=== PATIENT | male | born 1945 | race Caucasian/White ===

== ENCOUNTER 2017-02-19 19:12 | Emergency (ER) | payer BC, OTHER ==
[~2017-02-19] VITALS: Ht 160 cm; Wt 81.6 kg
[~2017-02-19 19:12] MED LIST: METF-312 PO; NIFE30TA76 PO
[2017-02-19 19:27] VITALS: BP 169/107
[2017-02-19 20:15] LABS: Basophils # (auto) 0 uL; Basophils % (auto) 0.7 % (0.0-2.0); Eosinophils # (auto) 0.1 uL; Eosinophils % (auto) 2.1 % (0.0-7.0); Hematocrit 42.9 % (41.0-53.0); Hemoglobin 14.3 g/dL (13.5-17.5); Lymphocytes # (auto) 1.7 uL; Lymphocytes % (auto) 32.5 % (10.0-50.0); Mean Corpuscular Hemoglobin 28.6 pg (28.0-32.0); Mean Corpuscular Hgb Conc. 33.2 g/dL (32.0-36.0); Mean Corpuscular Volume 86.3 fL (80.0-100.0); Mean Platelet Volume 7.6 fL (7.4-10.4); Monocytes # (auto) 0.5 uL; Monocytes % (auto) 10.2 % (0.0-12.0); Neutrophils # (auto) 2.9 uL; Neutrophils % (auto) 54.5 % (37.0-80.0); Platelet Count (auto) 236 10^3/uL (140-450); Red Cell Distribution Width 16.2 % (11.6-16.0); White Blood Cell 5.3 10^3/uL (4.4-10.8)
[2017-02-19 20:31] LABS: Albumin 4.1 g/dL (3.4-5.0); Alkaline Phosphatase 64 U/L (45-117); Anion Gap 14 (5-15); Aspartate Aminotransferase 30 U/L (15-37); BUN/Creatinine Ratio 14.6; Bilirubin, Total 0.3 mg/dL (0.2-1.0); Blood Urea Nitrogen 20 mg/dL (7-18); Calcium 9.2 mg/dL (8.5-10.1); Carbon Dioxide 24 mmol/L (21-32); Chloride 109 mmol/L (98-107); GFR African American 66 mL/min; GFR Non-African American 55 mL/min; Glucose 135 mg/dL (74-106); Magnesium 2.1 mg/dL (1.6-2.6); Potassium 3.3 mmol/L (3.5-5.1); Sodium 147 mmol/L (136-145); Total Protein 7.8 g/dL (6.4-8.2)
[2017-02-19 20:36] LABS: INR 1.03 (0.9-1.15); Partial Thromboplastin Time 22.9 sec (22.64-33.71); Prothrombin Time 10.6 sec (9.37-12.3)
== END 2017-02-19 20:25 | disposition left against medical advice (07) ==
LOC: EDBD 19:12 → ER 19:21
DX: R53.1 Weakness (principal); Z53.21 Procedure and treatment not carried out due to patient leaving prior to being seen by health care provider
CPT/HCPCS: 36415; 71020; 80053; 82962; 83735; 84484; 85025; 85610; 85730; 93005

== ENCOUNTER 2018-12-11 11:32 | Emergency (ER) | payer BC, MEDICARE, OTHER ==
[~2018-12-11] VITALS: Ht 165.1 cm; Wt 72.6 kg
[~2018-12-11 11:32] MED LIST changes: -METF-312 PO; +METF-370 PO
[2018-12-11 12:12] VITALS: BP 142/98
[2018-12-11] MEDS ORDERED: SODIUM CHLORIDE 0.9% 1,000 ML IV ONE (12:15)
[2018-12-11 12:37] LABS: Basophils # (auto) 0.1 uL; Basophils % (auto) 0.8 % (0.0-2.0); Eosinophils # (auto) 0.1 uL; Eosinophils % (auto) 1.8 % (0.0-7.0); Hemoglobin 13.7 g/dL (13.5-17.5); Lymphocytes # (auto) 2.3 uL; Lymphocytes % (auto) 38.9 % (10.0-50.0); Mean Corpuscular Hemoglobin 27.8 pg (28.0-32.0); Mean Corpuscular Hgb Conc. 33.5 g/dL (32.0-36.0); Monocytes # (auto) 0.6 uL; Monocytes % (auto) 9.9 % (0.0-12.0); Neutrophils # (auto) 2.9 uL; Neutrophils % (auto) 48.6 % (37.0-80.0); Nucleated Red Blood Cells % 0.1 %; Platelet Count (auto) 212 10^3/uL (140-450); Red Blood Cells 4.94 10^6/uL (4.5-5.90); Red Cell Distribution Width 18.1 % (11.8-14.3)
[2018-12-11 13:10] LABS: Potassium 3.7 mmol/L (3.5-5.1)
[2018-12-11 13:19] LABS: BUN/Creatinine Ratio 14.5; Bilirubin, Total 0.4 mg/dL (0.2-1.0); Calcium 9.3 mg/dL (8.5-10.1); Total Protein 7.7 g/dL (6.4-8.2)
== END 2018-12-11 15:07 | disposition home or self-care (01) ==
LOC: ER 11:32
DX: F10.129 Alcohol abuse with intoxication, unspecified (principal); E11.9 Type 2 diabetes mellitus without complications; E78.5 Hyperlipidemia, unspecified; Z79.84 Long term (current) use of oral hypoglycemic drugs; Z79.899 Other long term (current) drug therapy
CPT/HCPCS: 36415; 80053; 80320; 85025; 93005; 94761; 96360; 99284; J7030

== ENCOUNTER 2021-01-04 19:05 | Inpatient (IN) | payer MEDICARE ==
[~2021-01-04] VITALS: Ht 172.7 cm; Wt 84.7 kg
[~2021-01-04 19:05] MED LIST changes: +ACET500T43 PO; +FOLI1TAB6 PO; +LISI40TA11 PO; +NIFE1TAB30 PO; -NIFE30TA76 PO; +PANT40T PO; +THIA50CA PO
[2021-01-04] MEDS: LORazepam 2MG/ML-1ML VIAL ONE (19:17)
[2021-01-04 20:38] LABS: Basophils # (auto) 0 10 ^3/uL (0-0.2); Basophils % (auto) 0.4 % (0.0-2.0); Eosinophils # (auto) 0 10 ^3/uL (0-0.8); Eosinophils % (auto) 0.6 % (0.0-7.0); Hematocrit 42.8 % (41.0-53.0); Hemoglobin 14.4 g/dL (13.5-17.5); Lymphocytes # (auto) 1.6 10 ^3/uL (0.4-5.4); Lymphocytes % (auto) 29.8 % (10.0-50.0); Mean Corpuscular Hemoglobin 30.1 pg (28.0-32.0); Mean Corpuscular Hgb Conc. 33.6 g/dL (32.0-36.0); Mean Corpuscular Volume 89.4 fL (80.0-100.0); Monocytes # (auto) 0.7 10 ^3/uL (0-1.3); Monocytes % (auto) 13.1 % (0.0-12.0); Neutrophils # (auto) 3.1 10 ^3/uL (1.6-8.6); Neutrophils % (auto) 56.1 % (37.0-80.0); Nucleated Red Blood Cells % 0.3 %; Red Blood Cells 4.79 10^6/uL (4.5-5.90); Red Cell Distribution Width 13.6 % (11.8-14.3); White Blood Cell 5.5 10^3/uL (4.4-10.8)
[2021-01-04 21:01] LABS: Albumin 3.5 g/dL (3.4-5.0); Anion Gap 23 (5-15); BUN/Creatinine Ratio 10.6; Blood Urea Nitrogen 28 mg/dL (7-18); Calcium 9.4 mg/dL (8.5-10.1); Carbon Dioxide 15 mmol/L (21-32); Chloride 93 mmol/L (98-107); GFR African American 31 mL/min; GFR Non-African American 25 mL/min; Magnesium 2.1 mg/dL (1.6-2.6); Potassium 3.9 mmol/L (3.5-5.1); Sodium 131 mmol/L (136-145)
[2021-01-04 21:05] LABS: INR 0.98 (0.9-1.15); Partial Thromboplastin Time 22.4 sec (23.0-31.2)
[2021-01-04 21:09] LABS: Alanine Aminotransferase 34 U/L (16-61); Alkaline Phosphatase 89 U/L (45-117); Aspartate Aminotransferase 21 U/L (15-37); Bilirubin, Total 0.4 mg/dL (0.2-1.0); Total Protein 7.5 g/dL (6.4-8.2)
[2021-01-04 21:11] LABS: Glucose 572 mg/dL (74-106)
[2021-01-04] MEDS ORDERED: SODIUM CHLORIDE 0.9% 1,000 ML IV ONE ×2 (21:30→23:15)
[2021-01-04] MEDS ORDERED: InsuLIN REG 1unit/0.01ml Soln (100units/ml) IV ONE (21:30)
[2021-01-04 22:52] LABS: Urine Bacteria NONE SEEN /hpf (None Seen); Urine Blood 1+ /uL (Negative); Urine Specific Gravity 1.026 (1.001-1.035); Urine WBC 1 /hpf (0 - 3)
[2021-01-04 23:01] LABS: Amphetamine Screen, Urine NEGATIVE (NEGATIVE); Barbiturate Scree,Urine NEGATIVE (NEGATIVE); Benzodiazephine Screen, Urine NEGATIVE (NEGATIVE); Cannabinoid Screen, Urine NEGATIVE (NEGATIVE); Cocaine Screen, Urine NEGATIVE (NEGATIVE); Opiate Scree,Urine NEGATIVE (NEGATIVE); Phencyclidine Screen, Urine NEGATIVE (NEGATIVE)
[2021-01-04] MEDS ORDERED: VANCOMYCIN 1GM/250ML 250 ML IV ONE (23:15)
[2021-01-04] MEDS ORDERED: PIPERACILLIN-TAZOB 3.375GM 100 ML IV ONE (23:15)
[2021-01-05 00:16] LABS: Lactic Acid w/Reflex 2.5 mmol/L (0.4-2.0)
[2021-01-05] MEDS ORDERED: DEXTROSE (50%) 50ML SYRG IV PRN (04:30)
[2021-01-05] MEDS ORDERED: ACETAMINOPHEN 325 MG TAB PO PRN (04:30)
[2021-01-05] MEDS ORDERED: LORazepam 0.5 MG TAB PO PRN (04:30)
[2021-01-05] MEDS ORDERED: NITROGLYCERIN 0.4 MG SL TAB SL PRN ×2 (04:30)
[2021-01-05] MEDS ORDERED: MORPHINE SULFATE 4 MG/ML SYR/VIAL IV PRN (04:30)
[2021-01-05] MEDS ORDERED: ZOLPIDEM TARTRATE 5 MG TAB PO PRN (04:30)
[2021-01-05] MEDS ORDERED: MORPHINE SULFATE INJECTION 2 MG/ML SYRG IV PRN (04:30)
[2021-01-05] MEDS ORDERED: SODIUM CHLORIDE 0.9% 1,000 ML IV SCH (04:30)
[2021-01-05] MEDS ORDERED: ONDANSETRON HCL 4 MG/2 ML VIAL IV PRN (04:30)
[2021-01-05] MEDS ORDERED: LORazepam 2MG/ML-1ML VIAL IV ONE (06:45)
[2021-01-05] MEDS: ACCU-CHEK COMFORT CURVE STRIP VI SCH ×5 (07:36→23:34)
[2021-01-05] MEDS: InsuLIN REG 1unit/0.01ml Soln (100units/ml) SC SCH ×5 (08:04→23:57)
[2021-01-05 08:26] LABS: Basophils # (auto) 0 10 ^3/uL (0-0.2); Basophils % (auto) 0.6 % (0.0-2.0); Eosinophils # (auto) 0.1 10 ^3/uL (0-0.8); Eosinophils % (auto) 1.3 % (0.0-7.0); Hematocrit 38.8 % (41.0-53.0); Hemoglobin 13.2 g/dL (13.5-17.5); Lymphocytes # (auto) 1.3 10 ^3/uL (0.4-5.4); Lymphocytes % (auto) 21.4 % (10.0-50.0); Mean Corpuscular Hemoglobin 29.9 pg (28.0-32.0); Mean Corpuscular Hgb Conc. 34.1 g/dL (32.0-36.0); Mean Corpuscular Volume 87.7 fL (80.0-100.0); Monocytes # (auto) 0.8 10 ^3/uL (0-1.3); Neutrophils # (auto) 3.8 10 ^3/uL (1.6-8.6); Neutrophils % (auto) 63.7 % (37.0-80.0); Nucleated Red Blood Cells % 0.1 %; Red Blood Cells 4.42 10^6/uL (4.5-5.90); Red Cell Distribution Width 13.4 % (11.8-14.3)
[2021-01-05 08:46] LABS: Calcium 8.9 mg/dL (8.5-10.1); Potassium 3.6 mmol/L (3.5-5.1)
[2021-01-05 08:51] LABS: BUN/Creatinine Ratio 12.7
[2021-01-05] MEDS: LABETALOL HCL 5 MG/ML 4ML SYRINGE IV PRN ×2 (09:35→22:44)
[2021-01-05] MEDS: DOCUSATE SOD 100 MG CAP PO SCH (10:00)
[2021-01-05] MEDS: ASPirin 81 mg TAB PO SCH (10:00)
[2021-01-05] MEDS: ENOXAPARIN SOD 60 MG/0.6 ML SYRINGE SC SCH (10:00)
[2021-01-05] MEDS ORDERED: CARVEDILOL 3.125 MG TAB PO SCH (10:00)
[2021-01-05] MEDS: LISINOPRIL 5 MG TAB PO SCH (10:00)
[2021-01-05] MEDS ORDERED: CLOPIDOGREL BISULFATE 75 MG TAB PO SCH (10:00)
[2021-01-05] MEDS ORDERED: FOLIC ACID 1 MG, MULTIPLE VITAMIN 10 ML, MAGNESIUM SULF SDV 50% 8 MEQ, THIAMINE INJ 100... INJ SCH ×5 (11:00)
[2021-01-05] MEDS: MULTIPLE VITAMIN TAB PO SCH (12:17)
[2021-01-05] MEDS: FOLIC ACID 1 MG, MAGNESIUM SULF SDV 50% 8 MEQ, THIAMINE INJ 100 MG in SODIUM CHLORIDE 0... INJ SCH (12:17)
[2021-01-05] MEDS: SODIUM CHLORIDE 0.9% 1,000 ML IV SCH (12:36)
[2021-01-05] MEDS: chlordiazePOXIDE HCL 25 MG CAP PO SCH ×2 (18:05→23:49)
[2021-01-05] MEDS: CARVEDILOL 12.5 MG TAB PO SCH (21:32)
[2021-01-05] MEDS: ATORVASTATIN 20 MG TAB PO SCH (21:32)
[2021-01-05 21:51] VITALS: BP 169/109
[2021-01-05] MEDS ORDERED: INSULIN LANTUS (GLARGINE) 1 /0.01ml (100units/ml) SC SCH (22:00)
[2021-01-06] MEDS: ACCU-CHEK COMFORT CURVE STRIP VI SCH ×5 (03:53→20:00)
[2021-01-06] MEDS: InsuLIN REG 1unit/0.01ml Soln (100units/ml) SC SCH ×5 (03:53→20:00)
[2021-01-06] MEDS: LABETALOL HCL 5 MG/ML 4ML SYRINGE IV PRN (03:57)
[2021-01-06 04:44] VITALS: BP 161/99
[2021-01-06] MEDS: chlordiazePOXIDE HCL 25 MG CAP PO SCH ×3 (06:21→18:08)
[2021-01-06 06:58] LABS: Alanine Aminotransferase 21 U/L (16-61); Alkaline Phosphatase 64 U/L (45-117); Anion Gap 8 (5-15); Aspartate Aminotransferase 16 U/L (15-37); BUN/Creatinine Ratio 13.2; Bilirubin, Total 0.8 mg/dL (0.2-1.0); Blood Urea Nitrogen 22 mg/dL (7-18); Calcium 8.7 mg/dL (8.5-10.1); Carbon Dioxide 23 mmol/L (21-32); Chloride 110 mmol/L (98-107); GFR African American 52 mL/min; GFR Non-African American 43 mL/min; Glucose 175 mg/dL (74-106); Potassium 3.2 mmol/L (3.5-5.1); Sodium 141 mmol/L (136-145)
[2021-01-06 06:59] LABS: Albumin 2.7 g/dL (3.4-5.0); Magnesium 1.9 mg/dL (1.6-2.6)
[2021-01-06 08:00] VITALS: BP 161/97
[2021-01-06] MEDS: SODIUM CHLORIDE 0.9% 1,000 ML IV SCH (08:15)
[2021-01-06] MEDS: DOCUSATE SOD 100 MG CAP PO SCH (09:01)
[2021-01-06] MEDS: CARVEDILOL 12.5 MG TAB PO SCH ×2 (09:02→22:00)
[2021-01-06] MEDS: MULTIPLE VITAMIN TAB PO SCH (09:03)
[2021-01-06] MEDS: PANTOPRAZOLE 40 MG TAB PO SCH (09:03)
[2021-01-06] MEDS: LISINOPRIL 5 MG TAB PO SCH (09:04)
[2021-01-06] MEDS: ENOXAPARIN SOD 60 MG/0.6 ML SYRINGE SC SCH (09:04)
[2021-01-06] MEDS: ASPirin 81 mg TAB PO SCH (11:21)
[2021-01-06] MEDS: FOLIC ACID 1 MG, MAGNESIUM SULF SDV 50% 8 MEQ, THIAMINE INJ 100 MG in SODIUM CHLORIDE 0... INJ SCH (12:21)
[2021-01-06 15:48] VITALS: BP 142/87
[2021-01-06] MEDS ORDERED: ERGOCALCIFEROL 50,000 UNIT(1.25MG) CAP PO SCH (16:15)
[2021-01-06] MEDS ORDERED: MAGNESIUM SULFATE 1GM/100ML 100 ML IV ONE (16:15)
[2021-01-06] MEDS: CHOLECALCIFEROL (VITD3) 2,000 UNIT CAP/TAB PO SCH (16:17)
[2021-01-06 22:00] VITALS: BP 131/86
[2021-01-06] MEDS: INSULIN LANTUS (GLARGINE) 1 /0.01ml (100units/ml) SC SCH (22:00)
[2021-01-06] MEDS: ATORVASTATIN 20 MG TAB PO SCH (22:00)
[2021-01-07] MEDS: SODIUM CHLORIDE 0.9% 1,000 ML IV SCH (04:19)
[2021-01-07] MEDS: ACCU-CHEK COMFORT CURVE STRIP VI SCH ×6 (04:19→20:00)
[2021-01-07] MEDS: InsuLIN REG 1unit/0.01ml Soln (100units/ml) SC SCH ×6 (04:28→20:00)
[2021-01-07 05:28] VITALS: BP 161/98
[2021-01-07] MEDS: chlordiazePOXIDE HCL 25 MG CAP PO SCH ×4 (06:00→18:10)
[2021-01-07 07:37] LABS: Potassium 3.1 mmol/L (3.5-5.1)
[2021-01-07 07:41] LABS: Calcium 8.3 mg/dL (8.5-10.1); Magnesium 2.2 mg/dL (1.6-2.6)
[2021-01-07 09:00] VITALS: BP 158/97
[2021-01-07] MEDS ORDERED: POTASSIUM CHL 20 Meq TABLET PO ONE (09:45)
[2021-01-07] MEDS: CARVEDILOL 12.5 MG TAB PO SCH ×2 (10:00→22:08)
[2021-01-07] MEDS: ASPirin 81 mg TAB PO SCH (10:00)
[2021-01-07] MEDS: CHOLECALCIFEROL (VITD3) 2,000 UNIT CAP/TAB PO SCH (10:00)
[2021-01-07] MEDS: LISINOPRIL 5 MG TAB PO SCH (10:00)
[2021-01-07] MEDS: PANTOPRAZOLE 40 MG TAB PO SCH (10:00)
[2021-01-07] MEDS: ENOXAPARIN SOD 40 MG/0.4 ML SYRINGE SC SCH (10:00)
[2021-01-07] MEDS: DOCUSATE SOD 100 MG CAP PO SCH (10:00)
[2021-01-07] MEDS: MULTIPLE VITAMIN TAB PO SCH (10:00)
[2021-01-07] MEDS: FOLIC ACID 1 MG, MAGNESIUM SULF SDV 50% 8 MEQ, THIAMINE INJ 100 MG in SODIUM CHLORIDE 0... INJ SCH (12:00)
[2021-01-07] MEDS ORDERED: ATO40T PO (12:05)
[2021-01-07] MEDS ORDERED: LISI-275 PO (12:05)
[2021-01-07] MEDS ORDERED: INSLANTI SC (12:05)
[2021-01-07] MEDS ORDERED: MULTTAB99 PO (12:05)
[2021-01-07] MEDS ORDERED: CHOL500023 PO (12:05)
[2021-01-07] MEDS ORDERED: ASPI1CHW15 PO (12:05)
[2021-01-07] MEDS ORDERED: CARV6.25 PO (12:05)
[2021-01-07] MEDS ORDERED: SERT25TA84 PO (12:09)
[2021-01-07 13:00] VITALS: BP 125/89
[2021-01-07 16:56] VITALS: BP 126/78
[2021-01-07 21:00] VITALS: BP 122/70
[2021-01-07] MEDS: ATORVASTATIN 20 MG TAB PO SCH (22:08)
[2021-01-07] MEDS: INSULIN LANTUS (GLARGINE) 1 /0.01ml (100units/ml) SC SCH (22:09)
[2021-01-08] VITALS (7 sets, daily range): BP systolic 129–159; BP diastolic 74–94
[2021-01-08] MEDS: InsuLIN REG 1unit/0.01ml Soln (100units/ml) SC SCH ×6 (04:00→20:00)
[2021-01-08] MEDS: ACCU-CHEK COMFORT CURVE STRIP VI SCH ×6 (04:01→20:00)
[2021-01-08] MEDS: chlordiazePOXIDE HCL 25 MG CAP PO SCH ×4 (05:40→17:20)
[2021-01-08] MEDS: ASPirin 81 mg TAB PO SCH (09:56)
[2021-01-08] MEDS: CARVEDILOL 12.5 MG TAB PO SCH ×2 (09:57→21:15)
[2021-01-08] MEDS: PANTOPRAZOLE 40 MG TAB PO SCH (09:57)
[2021-01-08] MEDS: MULTIPLE VITAMIN TAB PO SCH (09:57)
[2021-01-08] MEDS: DOCUSATE SOD 100 MG CAP PO SCH (09:58)
[2021-01-08] MEDS: LISINOPRIL 5 MG TAB PO SCH (09:58)
[2021-01-08] MEDS: ENOXAPARIN SOD 40 MG/0.4 ML SYRINGE SC SCH (09:59)
[2021-01-08] MEDS: CHOLECALCIFEROL (VITD3) 2,000 UNIT CAP/TAB PO SCH (10:00)
[2021-01-08] MEDS: FOLIC ACID 1 MG, MAGNESIUM SULF SDV 50% 8 MEQ, THIAMINE INJ 100 MG in SODIUM CHLORIDE 0... INJ SCH (13:30)
[2021-01-08] MEDS: ATORVASTATIN 20 MG TAB PO SCH (21:15)
[2021-01-08] MEDS: INSULIN LANTUS (GLARGINE) 1 /0.01ml (100units/ml) SC SCH (21:15)
[2021-01-09] MEDS: ACCU-CHEK COMFORT CURVE STRIP VI SCH ×3 (00:29→08:33)
[2021-01-09] MEDS: InsuLIN REG 1unit/0.01ml Soln (100units/ml) SC SCH ×3 (04:00→08:35)
[2021-01-09 05:00] VITALS: BP 154/101
[2021-01-09] MEDS: chlordiazePOXIDE HCL 25 MG CAP PO SCH ×2 (05:20)
[2021-01-09 08:00] VITALS: BP 165/94
[2021-01-09 09:00] VITALS: BP 165/95
[2021-01-09] MEDS: ASPirin 81 mg TAB PO SCH (09:16)
[2021-01-09] MEDS: ENOXAPARIN SOD 40 MG/0.4 ML SYRINGE SC SCH (09:16)
[2021-01-09] MEDS: DOCUSATE SOD 100 MG CAP PO SCH (09:16)
[2021-01-09] MEDS: CARVEDILOL 12.5 MG TAB PO SCH (09:17)
[2021-01-09] MEDS: LISINOPRIL 5 MG TAB PO SCH (09:18)
[2021-01-09] MEDS: PANTOPRAZOLE 40 MG TAB PO SCH (09:18)
[2021-01-09] MEDS: CHOLECALCIFEROL (VITD3) 2,000 UNIT CAP/TAB PO SCH (09:18)
[2021-01-09] MEDS: MULTIPLE VITAMIN TAB PO SCH (09:18)
[2021-01-09] MEDS ORDERED: DEXTROSE (50%) 50ML SYRG IV PRN (10:00)
[2021-01-09] MEDS ORDERED: InsuLIN REG 1unit/0.01ml Soln (100units/ml) SC SCH (11:30)
[2021-01-09] MEDS ORDERED: ACCU-CHEK COMFORT CURVE STRIP VI SCH (11:30)
[2021-01-09] MEDS: LABETALOL HCL 5 MG/ML 4ML SYRINGE IV PRN (11:59)
[2021-01-09] MEDS: FOLIC ACID 1 MG, MAGNESIUM SULF SDV 50% 8 MEQ, THIAMINE INJ 100 MG in SODIUM CHLORIDE 0... INJ SCH (12:00)
== END 2021-01-09 14:35 | disposition home health service (06) | DRG 896 ==
LOC: EDBD 19:05 → ER 19:08 → TELE 19:09 → TELE-CENTR 01-05 21:49
PROVIDERS: ADMIT Hospitalist; ATTEND Internal Medicine
DX: F10.139 Alcohol abuse with withdrawal, unspecified (principal); N17.0 Acute kidney failure with tubular necrosis; I21.A1 Myocardial infarction type 2; I50.32 Chronic diastolic (congestive) heart failure; I13.0 Hypertensive heart and chronic kidney disease with heart failure and stage 1 through stage 4 chronic kidney disease, or unspecified chronic kidney disease; F10.129 Alcohol abuse with intoxication, unspecified; E11.65 Type 2 diabetes mellitus with hyperglycemia; E78.5 Hyperlipidemia, unspecified; E55.9 Vitamin D deficiency, unspecified; Z20.822 Contact with and (suspected) exposure to COVID-19; E87.6 Hypokalemia; E66.9 Obesity, unspecified; Z68.30 Body mass index [BMI] 30.0-30.9, adult; E11.22 Type 2 diabetes mellitus with diabetic chronic kidney disease; G40.909 Epilepsy, unspecified, not intractable, without status epilepticus; F32.9 Major depressive disorder, single episode, unspecified; Z79.82 Long term (current) use of aspirin; Z79.84 Long term (current) use of oral hypoglycemic drugs; Z79.899 Other long term (current) drug therapy; Z86.73 Personal history of transient ischemic attack (TIA), and cerebral infarction without residual deficits; Z83.3 Family history of diabetes mellitus; Z91.19 Patient's noncompliance with other medical treatment and regimen; Z71.41 Alcohol abuse counseling and surveillance of alcoholic; N18.32 Chronic kidney disease, stage 3b
CPT/HCPCS: 36415; 36600; 70450; 70551; 71045; 72125; 80048; 80053; 80061; 80307; 80320; 81001; 82010; 82140; 82306; 82728; 82805; 82962; 83036; 83605; 83735; 83880; 84443; 84484; 85025; 85379; 85610; 85730; 87040; 87086; 87426; 93005; 93306; 93886; 93970; 95819; 97163; 99291; G0378; J1815; J2543; J3490

== ENCOUNTER 2022-05-03 17:45 | Emergency (ER) | payer MEDICARE ==
[~2022-05-03] VITALS: Ht 160 cm; Wt 77.1 kg
[~2022-05-03 17:45] MED LIST changes: +ASPI1CHW15 PO; +ATO40T PO; +CARV6.25 PO; +CHOL500023 PO; +INSLANTI SC; +LISI-275 PO; -LISI40TA11 PO; +MULTTAB99 PO; +SERT25TA84 PO
[2022-05-04 18:16] VITALS: BP 160/99
== END 2022-05-04 19:05 | disposition home or self-care (01) ==
LOC: EDBD 17:45 → ER 17:45 → EDUNIT# 17:45 → ER 05-04 18:33
DX: I95.9 Hypotension, unspecified (principal); I10 Essential (primary) hypertension; E11.9 Type 2 diabetes mellitus without complications; Z79.82 Long term (current) use of aspirin; Z79.4 Long term (current) use of insulin; Z79.899 Other long term (current) drug therapy
CPT/HCPCS: 93005

== ENCOUNTER 2022-06-25 13:11 | Inpatient (IN) | payer MEDICARE, OTHER, MEDICAID ==
[~2022-06-25] VITALS: Ht 172.7 cm; Wt 77.0 kg
[2022-06-25] MEDS ORDERED: SODIUM CHLORIDE 0.9% 1,000 ML IVB ONE (13:45)
[2022-06-25 14:12] LABS: Eosinophils # (auto) 0.1 10 ^3/uL (0-0.8); Lymphocytes # (auto) 2.3 10 ^3/uL (0.4-5.4); Monocytes # (auto) 0.8 10 ^3/uL (0-1.3)
[2022-06-25 14:14] LABS: Basophils # (auto) 0 10 ^3/uL (0-0.2); Basophils % (auto) 0.4 % (0.0-2.0); Eosinophils % (auto) 2.4 % (0.0-7.0); Hematocrit 37.5 % (41.0-53.0); Lymphocytes % (auto) 41.2 % (10.0-50.0); Mean Corpuscular Hemoglobin 26.3 pg (28.0-32.0); Mean Corpuscular Volume 82.3 fL (80.0-100.0); Monocytes % (auto) 13.7 % (0.0-12.0); Neutrophils # (auto) 2.4 10 ^3/uL (1.6-8.6); Neutrophils % (auto) 42.3 % (37.0-80.0); Nucleated Red Blood Cells % 0.2 %; Red Blood Cells 4.56 10^6/uL (4.5-5.90); Red Cell Distribution Width 14.5 % (11.8-14.3); White Blood Cell 5.7 10^3/uL (4.4-10.8)
[2022-06-25 14:32] LABS: Lactic Acid w/Reflex 2.2 mmol/L (0.4-2.0)
[2022-06-25 14:37] LABS: Albumin 3.3 g/dL (3.4-5.0); BUN/Creatinine Ratio 19.1; Bilirubin, Total 0.4 mg/dL (0.2-1.0); Calcium 9.7 mg/dL (8.5-10.1); Magnesium 2.4 mg/dL (1.6-2.6); Total Protein 6.8 g/dL (6.4-8.2)
[2022-06-25] MEDS ORDERED: DOCUSATE SOD 100 MG CAP PO PRN (22:00)
[2022-06-25] MEDS: InsuLIN REG 1unit/0.01ml Soln (100units/ml) SC SCH (22:00)
[2022-06-25] MEDS ORDERED: DEXTROSE (50%) 50ML SYRG IV PRN (22:00)
[2022-06-25] MEDS: ACCU-CHEK COMFORT CURVE STRIP VI SCH (22:00)
[2022-06-25] MEDS ORDERED: ONDANSETRON HCL 4 MG/2 ML VIAL IV PRN (22:00)
[2022-06-25] MEDS ORDERED: ACETAMINOPHEN 325 MG TAB PO PRN (22:00)
[2022-06-25] MEDS ORDERED: HYDROcodone-ACET 5/325MG TAB PO PRN (22:00)
[2022-06-25] MEDS: SODIUM CHLORIDE 0.9% 1,000 ML IV SCH (22:42)
[2022-06-25] MEDS: ATORVASTATIN 20 MG TAB PO SCH (22:49)
[2022-06-25] MEDS: FAMOTIDINE (10MG/ML) 2ML VL IV SCH (22:50)
[2022-06-25] MEDS ORDERED: MORPHINE SULFATE INJ 2 MG/ml SYRG IV PRN (23:15)
[2022-06-25] MEDS ORDERED: NITROGLYCERIN 0.4 MG SL TAB SL PRN (23:15)
[2022-06-26] VITALS (7 sets, daily range): BP systolic 100–158; BP diastolic 45–91
[2022-06-26 05:56] LABS: Basophils # (auto) 0 10 ^3/uL (0-0.2); Basophils % (auto) 0.7 % (0.0-2.0); Eosinophils # (auto) 0.2 10 ^3/uL (0-0.8); Eosinophils % (auto) 2.7 % (0.0-7.0); Hematocrit 34.4 % (41.0-53.0); Hemoglobin 11.4 g/dL (13.5-17.5); Lymphocytes # (auto) 1.8 10 ^3/uL (0.4-5.4); Lymphocytes % (auto) 30.4 % (10.0-50.0); Mean Corpuscular Hgb Conc. 33.1 g/dL (32.0-36.0); Mean Corpuscular Volume 81.6 fL (80.0-100.0); Monocytes # (auto) 0.7 10 ^3/uL (0-1.3); Monocytes % (auto) 12.7 % (0.0-12.0); Neutrophils # (auto) 3.1 10 ^3/uL (1.6-8.6); Neutrophils % (auto) 53.5 % (37.0-80.0); Nucleated Red Blood Cells % 0.1 %; Red Blood Cells 4.22 10^6/uL (4.5-5.90); White Blood Cell 5.8 10^3/uL (4.4-10.8)
[2022-06-26 06:18] LABS: Chloride 113 mmol/L (98-107); Potassium 3.8 mmol/L (3.5-5.1); Sodium 141 mmol/L (136-145)
[2022-06-26 06:22] LABS: Albumin 2.7 g/dL (3.4-5.0); Anion Gap 8 (5-15); Blood Urea Nitrogen 33 mg/dL (7-18); Calcium 9.1 mg/dL (8.5-10.1); Carbon Dioxide 20 mmol/L (21-32); GFR African American 59 mL/min; GFR Non-African American 48 mL/min; Glucose 94 mg/dL (74-106)
[2022-06-26 06:25] LABS: Alanine Aminotransferase 21 U/L (16-61); Alkaline Phosphatase 64 U/L (45-117); Aspartate Aminotransferase 16 U/L (15-37); Bilirubin, Total 0.4 mg/dL (0.2-1.0); Total Protein 6.2 g/dL (6.4-8.2)
[2022-06-26] MEDS: ACCU-CHEK COMFORT CURVE STRIP VI SCH ×4 (06:34→23:05)
[2022-06-26] MEDS: InsuLIN REG 1unit/0.01ml Soln (100units/ml) SC SCH ×4 (06:34→22:00)
[2022-06-26] MEDS: NIFEdipine ER 30 MG TAB PO SCH (10:00)
[2022-06-26] MEDS: LISINOPRIL 20 MG TAB PO SCH (10:00)
[2022-06-26] MEDS: ASPirin 81 mg TAB PO SCH (10:00)
[2022-06-26] MEDS: SERTRALINE HCL 50 MG TAB PO SCH (10:00)
[2022-06-26] MEDS: LACTULOSE 20Gm/30ML SOLN PO SCH (12:00)
[2022-06-26] MEDS: FAMOTIDINE (10MG/ML) 2ML VL IV SCH ×2 (12:55→23:04)
[2022-06-26] MEDS: FOLIC ACID 1 MG, MULTIPLE VITAMIN 10 ML, MAGNESIUM SULF SDV 50% 8 MEQ, THIAMINE INJ 100... INJ SCH ×5 (16:27)
[2022-06-26] MEDS: SODIUM CHLORIDE 0.9% 1,000 ML IV SCH (16:27)
[2022-06-26] MEDS: ATORVASTATIN 20 MG TAB PO SCH (23:04)
[2022-06-27] VITALS (8 sets, daily range): BP systolic 105–179; BP diastolic 65–107
[2022-06-27] MEDS: SODIUM CHLORIDE 0.9% 1,000 ML IV SCH (06:37)
[2022-06-27] MEDS: ACCU-CHEK COMFORT CURVE STRIP VI SCH ×4 (06:37→21:46)
[2022-06-27] MEDS: InsuLIN REG 1unit/0.01ml Soln (100units/ml) SC SCH ×4 (06:38→21:46)
[2022-06-27] MEDS: ASPirin 81 mg TAB PO SCH (09:51)
[2022-06-27] MEDS: FAMOTIDINE (10MG/ML) 2ML VL IV SCH ×2 (09:51→21:45)
[2022-06-27] MEDS: SERTRALINE HCL 50 MG TAB PO SCH (09:52)
[2022-06-27] MEDS: NIFEdipine ER 30 MG TAB PO SCH (09:52)
[2022-06-27] MEDS: LISINOPRIL 20 MG TAB PO SCH (09:52)
[2022-06-27] MEDS: LACTULOSE 20Gm/30ML SOLN PO SCH ×4 (11:53→18:17)
[2022-06-27] MEDS ORDERED: cloNIDine HCL 0.1 MG TAB PO PRN (12:00)
[2022-06-27] MEDS: FOLIC ACID 1 MG, MULTIPLE VITAMIN 10 ML, MAGNESIUM SULF SDV 50% 8 MEQ, THIAMINE INJ 100... INJ SCH ×5 (13:25)
[2022-06-27] MEDS: ATORVASTATIN 20 MG TAB PO SCH (21:45)
[2022-06-28] MEDS: LACTULOSE 20Gm/30ML SOLN PO SCH ×5 (00:09→23:50)
[2022-06-28] MEDS: SODIUM CHLORIDE 0.9% 1,000 ML IV SCH ×2 (02:27→17:17)
[2022-06-28 05:00] VITALS: BP 130/79
[2022-06-28] MEDS: ACCU-CHEK COMFORT CURVE STRIP VI SCH ×4 (07:00→22:14)
[2022-06-28] MEDS: InsuLIN REG 1unit/0.01ml Soln (100units/ml) SC SCH ×4 (07:00→22:00)
[2022-06-28 09:00] VITALS: BP 125/74
[2022-06-28] MEDS: FAMOTIDINE (10MG/ML) 2ML VL IV SCH ×2 (09:14→22:13)
[2022-06-28] MEDS: ASPirin 81 mg TAB PO SCH (09:14)
[2022-06-28] MEDS: SERTRALINE HCL 50 MG TAB PO SCH (09:15)
[2022-06-28] MEDS: NIFEdipine ER 30 MG TAB PO SCH (09:16)
[2022-06-28] MEDS: LISINOPRIL 20 MG TAB PO SCH (09:16)
[2022-06-28] MEDS: FOLIC ACID 1 MG, MULTIPLE VITAMIN 10 ML, MAGNESIUM SULF SDV 50% 8 MEQ, THIAMINE INJ 100... INJ SCH ×5 (11:54)
[2022-06-28 13:00] VITALS: BP 148/98
[2022-06-28 17:51] VITALS: BP 140/77
[2022-06-28 20:30] VITALS: BP 126/80
[2022-06-28 22:00] VITALS: BP 140/79
[2022-06-28] MEDS: ATORVASTATIN 20 MG TAB PO SCH (22:14)
[2022-06-29 05:00] VITALS: BP 143/72
[2022-06-29] MEDS: InsuLIN REG 1unit/0.01ml Soln (100units/ml) SC SCH ×4 (06:16→23:25)
[2022-06-29] MEDS: LACTULOSE 20Gm/30ML SOLN PO SCH ×3 (06:16→17:42)
[2022-06-29] MEDS: ACCU-CHEK COMFORT CURVE STRIP VI SCH ×4 (06:16→22:11)
[2022-06-29 09:00] VITALS: BP 134/75
[2022-06-29] MEDS: FAMOTIDINE (10MG/ML) 2ML VL IV SCH ×2 (09:28→22:11)
[2022-06-29] MEDS: ASPirin 81 mg TAB PO SCH (09:29)
[2022-06-29] MEDS: SODIUM CHLORIDE 0.9% 1,000 ML IV SCH (09:29)
[2022-06-29] MEDS: SERTRALINE HCL 50 MG TAB PO SCH (09:30)
[2022-06-29] MEDS: NIFEdipine ER 30 MG TAB PO SCH (09:30)
[2022-06-29] MEDS: LISINOPRIL 20 MG TAB PO SCH (09:30)
[2022-06-29 13:00] VITALS: BP 139/72
[2022-06-29] MEDS: FOLIC ACID 1 MG, MULTIPLE VITAMIN 10 ML, MAGNESIUM SULF SDV 50% 8 MEQ, THIAMINE INJ 100... INJ SCH ×5 (14:11)
[2022-06-29 17:00] VITALS: BP 148/98
[2022-06-29 22:00] VITALS: BP 145/73
[2022-06-29] MEDS: ATORVASTATIN 20 MG TAB PO SCH (22:11)
[2022-06-30] MEDS: LACTULOSE 20Gm/30ML SOLN PO SCH ×5 (00:11→23:31)
[2022-06-30] MEDS: SODIUM CHLORIDE 0.9% 1,000 ML IV SCH ×3 (03:22→21:49)
[2022-06-30 05:00] VITALS: BP 115/71
[2022-06-30] MEDS: ACCU-CHEK COMFORT CURVE STRIP VI SCH ×4 (06:06→21:34)
[2022-06-30] MEDS: InsuLIN REG 1unit/0.01ml Soln (100units/ml) SC SCH ×4 (06:06→21:35)
[2022-06-30] MEDS: FAMOTIDINE (10MG/ML) 2ML VL IV SCH ×2 (09:37→21:33)
[2022-06-30] MEDS: ASPirin 81 mg TAB PO SCH (09:37)
[2022-06-30] MEDS: SERTRALINE HCL 50 MG TAB PO SCH (09:38)
[2022-06-30] MEDS: LISINOPRIL 20 MG TAB PO SCH (09:41)
[2022-06-30] MEDS: NIFEdipine ER 30 MG TAB PO SCH (09:41)
[2022-06-30 10:01] VITALS: BP 123/80
[2022-06-30 12:56] VITALS: BP 116/73
[2022-06-30] MEDS: FOLIC ACID 1 MG, MULTIPLE VITAMIN 10 ML, MAGNESIUM SULF SDV 50% 8 MEQ, THIAMINE INJ 100... INJ SCH ×5 (13:27)
[2022-06-30 16:48] VITALS: BP 122/68
[2022-06-30 21:28] VITALS: BP 126/83
[2022-06-30] MEDS: ATORVASTATIN 20 MG TAB PO SCH (21:34)
[2022-07-01] MEDS: LACTULOSE 20Gm/30ML SOLN PO SCH (05:56)
[2022-07-01] MEDS: InsuLIN REG 1unit/0.01ml Soln (100units/ml) SC SCH (05:57)
[2022-07-01] MEDS: ACCU-CHEK COMFORT CURVE STRIP VI SCH (05:57)
[2022-07-01 08:00] VITALS: BP 126/83
[2022-07-01 10:12] VITALS: BP 126/83
[2022-07-01] MEDS: ASPirin 81 mg TAB PO SCH (10:39)
[2022-07-01] MEDS: SERTRALINE HCL 50 MG TAB PO SCH (10:41)
[2022-07-01] MEDS: NIFEdipine ER 30 MG TAB PO SCH (10:41)
[2022-07-01] MEDS: LISINOPRIL 20 MG TAB PO SCH (10:42)
[2022-07-01] MEDS: FAMOTIDINE (10MG/ML) 2ML VL IV SCH (10:42)
== END 2022-07-01 12:42 | DRG 92 ==
LOC: EDUNIT# 13:11 → EDBD 13:11 → ER 13:11 → OVERFLOW 23:11 → WEST WING 23:58
PROVIDERS: ADMIT Nurse Practitioner Family; ATTEND Family Medicine
DX: G92.8 Other toxic encephalopathy (principal); E44.0 Moderate protein-calorie malnutrition; N17.9 Acute kidney failure, unspecified; E72.20 Disorder of urea cycle metabolism, unspecified; E11.65 Type 2 diabetes mellitus with hyperglycemia; E88.09 Other disorders of plasma-protein metabolism, not elsewhere classified; F03.90 Unspecified dementia, unspecified severity, without behavioral disturbance, psychotic disturbance, mood disturbance, and anxiety; I10 Essential (primary) hypertension; M19.90 Unspecified osteoarthritis, unspecified site; Z20.822 Contact with and (suspected) exposure to COVID-19; E11.21 Type 2 diabetes mellitus with diabetic nephropathy; E11.40 Type 2 diabetes mellitus with diabetic neuropathy, unspecified; E78.00 Pure hypercholesterolemia, unspecified; E86.0 Dehydration; F10.10 Alcohol abuse, uncomplicated; Z68.25 Body mass index [BMI] 25.0-25.9, adult
CPT/HCPCS: 36415; 70450; 70551; 71045; 80053; 80320; 82140; 82962; 83036; 83605; 83735; 84484; 85025; 93005; 96360; 99291; G0378; J1815; J3490

== ENCOUNTER 2022-08-20 17:59 | Emergency (ER) | payer MEDICARE, OTHER, MEDICAID ==
[~2022-08-20] VITALS: Ht 172.7 cm; Wt 68.0 kg
[2022-08-20 20:30] LABS: Urine Bacteria NONE SEEN /hpf (None Seen); Urine Blood 3+ /uL (Negative); Urine Specific Gravity 1.013 (1.001-1.035); Urine WBC 8 /hpf (0 - 3)
[2022-08-20 20:39] LABS: Basophils # (auto) 0 10 ^3/uL (0-0.2); Lymphocytes # (auto) 0.8 10 ^3/uL (0.4-5.4); Monocytes # (auto) 0.5 10 ^3/uL (0-1.3); Monocytes % (auto) 7.7 % (0.0-12.0)
[2022-08-20 20:42] LABS: Basophils % (auto) 0.5 % (0.0-2.0); Eosinophils # (auto) 0.1 10 ^3/uL (0-0.8); Eosinophils % (auto) 0.9 % (0.0-7.0); Hematocrit 38.8 % (41.0-53.0); Hemoglobin 12.9 g/dL (13.5-17.5); Lymphocytes % (auto) 13.8 % (10.0-50.0); Mean Corpuscular Hemoglobin 26.3 pg (28.0-32.0); Mean Corpuscular Hgb Conc. 33.2 g/dL (32.0-36.0); Mean Corpuscular Volume 79.2 fL (80.0-100.0); Neutrophils # (auto) 4.6 10 ^3/uL (1.6-8.6); Neutrophils % (auto) 77.1 % (37.0-80.0); Nucleated Red Blood Cells % 0.1 %; Red Cell Distribution Width 14.9 % (11.8-14.3); White Blood Cell 5.9 10^3/uL (4.4-10.8)
[2022-08-20 20:56] LABS: Albumin 3.6 g/dL (3.4-5.0); Calcium 10.3 mg/dL (8.5-10.1); Potassium 3.3 mmol/L (3.5-5.1)
[2022-08-20 21:12] LABS: BUN/Creatinine Ratio 12.4; Bilirubin, Total 0.9 mg/dL (0.2-1.0); Total Protein 7.2 g/dL (6.4-8.2)
[2022-08-21 11:45] VITALS: BP 137/54
== END 2022-08-21 11:46 | disposition home or self-care (01) ==
LOC: EDUNIT# 17:59 → EDBD 17:59 → ER 18:01
DX: R41.82 Altered mental status, unspecified (principal); F03.90 Unspecified dementia, unspecified severity, without behavioral disturbance, psychotic disturbance, mood disturbance, and anxiety; E11.9 Type 2 diabetes mellitus without complications; I10 Essential (primary) hypertension; Z79.4 Long term (current) use of insulin; Z79.899 Other long term (current) drug therapy
CPT/HCPCS: 36415; 70450; 71045; 80053; 81001; 84443; 84484; 85025; 93005